=== PATIENT | male | born 1975 | race Caucasian/White ===

== ENCOUNTER 2024-12-09 13:20 | Outpatient (RCR) | payer MEDICAID, SELFPAY ==
--- NOTE | 2024-12-09 14:42 | CTCCONSULT_ITS ---
[facility] [address] [place], [place] [address] Consultation Note Date: 12/09/2024 MR#: [id number] Name: OMAYRA MARTÍNEZ : 1975 Dx: C61 Malignant neoplasm of prostate Referring physician. Adan Yarbrough MD Reason for consultation. Patient with diagnosis of CA prostate group 1 [place] score 6 referred for radiation oncology consultation. History of Present Illness: Patient is a 49-year-old gentleman with mildly elevated PSA of 4.9 and underwent biopsy of the prostate performed by Dr. Yarbrough revealing malignancy in 7 of 12 cores of both the left and the right all Trina's 3+3 equal 6 group 1. Patient was recommended to have active cervical valence with repeat PSA in January and follow-up. Patient wanted to have a second opinion and is here for radiation oncology consultation. Has had prostatism symptoms Past Medical History: History of arthritis of foot BPH hypertension left shoulder injury resulting in current disability from work Meds. Voltaren gel sildenafil meloxicam Allergies none known Social History: Currently on disability from work. Family history. Grandfather prostate and skin cancer 1 uncle from father side had prostate cancer. Review of Systems: Has had some erectile difficulties nocturia Physical Exam: General: Adequate nourished appearing gentleman in no acute distress HEENT: Atraumatic normocephalic extraocular is intact no oral lesions no cervical or cervical adenopathy CV: Chest clear to auscultation heart regular rate and rhythm ABD: Soft no sinus clubbing or edema no organomegaly or tenderness EXT: Assessment:1. Patient with favorable early stage Group 1 [place] score 6 PSA 4.9 CA of prostate. Was recommended active surveillance by urologist Dr. Yarbrough 2. Do agree with Dr. Yarbrough regarding that immediate treatment with either surgery or radiation likely unnecessary and cause lifelong side effects and complications 3. Patient will be followed by Dr. Yarbrough with surveillance with periodic PSA checks. 4. Thank you very much for allowing me to evaluate this patient Cc: Adan Yarbrough MD [place] Electronically signed by: Rehan Hines MD, DABR 12/09/2024 2:39 PM
== END 2024-12-24 23:59 | disposition home or self-care (01) ==
LOC: SCTC 13:20
PROVIDERS: PCP Family Medicine Adult Medicine; Referring Provider Radiology Therapeutic Radiology; Visit Provider Radiology Therapeutic Radiology
DX: C61 Malignant neoplasm of prostate (principal)
CPT/HCPCS: 99213; G0463